=== PATIENT | male | born 1960 | race Asian ===

== ENCOUNTER 2021-09-23 10:25 | Emergency (ER) | payer SELFPAY ==
[2021-09-23 11:15] VITALS: BMI 23.2
[2021-09-23 13:59] LABS: HEMATOCRIT 33.2 % (35.4-49); HEMOGLOBIN 10.9 GM/dL (11.7-16.9); MCH 22.3 pg (25.7-33.7); MCHC 32.8 g/dl (32.0-35.9); MEAN PLT VOLUME 9.6 fl (7.5-11.1); PLATELET COUNT 485 10^3/uL (134-434); RBC 4.89 M/mm3 (4.00-5.60); WHITE BLOOD COUNT 8.8 K/mm3 (4.0-10.0)
[2021-09-23 14:08] LABS: INR 1.51 (0.83-1.09); PROTHROMBIN TIME (PATIENT) 17.7 SEC (9.7-13.0)
[2021-09-23 14:10] LABS: ADD RBC MORPHOLOGY YES
[2021-09-23 14:13] LABS: CHLORIDE 104 mmol/L (98-107); SODIUM 136 mmol/L (136-145)
[2021-09-23 14:15] LABS: ANION GAP 8 MMOL/L (8-16); CALCIUM 8.7 mg/dL (8.5-10.1); CO2 24 mmol/L (21-32); GLUCOSE,RANDOM 96 mg/dL (74-106)
[2021-09-23 14:16] LABS: ALBUMIN 2.2 g/dl (3.4-5.0); BLOOD UREA NITROGEN 26.5 mg/dL (7-18); MAGNESIUM 2.6 mg/dL (1.8-2.4)
[2021-09-23 14:18] LABS: CREATININE 0.9 mg/dL (0.55-1.3); SGPT/ALT 159 U/L (13-61)
[2021-09-23 14:19] LABS: LDH 240 U/L (87-246); PHOSPHOROUS 3.2 mg/dL (2.5-4.9); SGOT/AST 186 U/L (15-37)
[2021-09-23 14:20] LABS: TOT PROT 5.8 g/dl (6.4-8.2)
[2021-09-23 14:21] LABS: ALK PHOS 882 U/L (45-117)
[2021-09-23 15:04] LABS: EPI CELLS 0 /uL (0-25.1); HYALINE CASTS 1 /uL (0-3.1); URINE APPEARANCE CLOUDY; URINE BILIRUBIN 3+ (NEGATIVE); URINE COLOR DK YELLOW; URINE GLUCOSE (UA) NEGATIVE (NEGATIVE); URINE KETONE NEGATIVE (NEGATIVE); URINE LEUK ESTERASE 1+ (NEGATIVE); URINE NITRITE POSITIVE (NEGATIVE); URINE PROTEIN 1+ (NEGATIVE); URINE RBC 50 /uL (0-23.9); URINE UROBILINOGEN 0.2 mg/dL (0.2-1.0); URINE WBC 0 /uL (0-25.8)
[2021-09-23 15:17] LABS: ANISOCYTOSIS 2+
[2021-09-23 15:18] LABS: PLATELET ESTIMATE ADEQUATE; TARGET CELLS 1+
[2021-09-23 16:31] LABS: URINE BACTERIA 1 /uL (0-1359)
[2021-09-23] MEDS ORDERED: PHYTONADIONE 10 MG/1 ML AMP IVPB ONE (17:06)
[2021-09-23] MEDS ORDERED: PHYTONADIONE 10 MG/1 ML AMP ONE (18:23)
[2021-09-23 22:02] VITALS: BP 109/71; PULSE 90; TEMP 99
== END 2021-09-23 22:26 | disposition short-term general hospital (02) ==
LOC: JER 10:25
PROC: 3E033GC Introduction of Other Therapeutic Substance into Peripheral Vein, Percutaneous Approach (ICD-10-PCS; principal; 2021-09-23)
DX: R17 Unspecified jaundice (principal)
CPT/HCPCS: 36415; 74177-TC; 76705-TC; 80053; 81003; 82248; 83010; 83615; 83690; 83735; 84100; 85025; 85610; 85730; 86705; 86708; 87350; 87517; 87522; 99285-25; C9803; Q9967; U0003; U0005